=== PATIENT | male | born 1980 | race Caucasian/White ===

== ENCOUNTER 2017-05-25 21:41 | Inpatient (IN) | payer OTHER ==
[~2017-05-25] VITALS: Ht 182.9 cm; Wt 95.7 kg
[~2017-05-25 21:41] MED LIST: FLEXERIL10 MG PO; LOMOTIL 2.5-0.1 EACH PO; MOTRIN800 MG PO; ONDANSETRON HCL4 MG PO; PROMETHAZINE HC25 M3 PO; PROTONIX20 M1 PO; VICODIN5-300 PO; ZOFRAN ODT4 M1 PO
--- NOTE | 2017-05-26 00:37 | ED GI/GU/ABDOMINAL COMPLAINT ---
History of Present Illness General Chief Complaint: Nausea, Vomiting, Diarrhea Stated Complaint: +V,+N, ABD PAIN Source: patient, old records Exam Limitations: no limitations Vital Signs & Intake/Output Vital Signs & Intake/Output Vital Signs Date Time Temp Pulse Resp B/P B/P Pulse O2 O2 Flow FiO2 Mean Ox Delivery Rate 05/26 0336 97.3 76 20 111/59 97 Room Air 05/26 0045 Room Air 05/25 2152 98.0 74 18 125/79 96 Room Air ED Intake and Output 05/26 0000 05/25 1200 Intake Total Output Total Balance Patient 185 lb Weight Allergies Coded Allergies: aspirin (ANAPHYLAXIS 10/17/16) tramadol (HIVES 10/17/16) Reconcile Medications No Known Home Medications Triage Note: PT TO TRIAGE C/O N/V SINCE 6AM WELL 12/07 MID ABD PAIN. PT REPORTS TOOK OTD ZOFRAN WITH MINIMAL EFFECT AND THEN VOMITING BEGINS AGAIN. POOR PO INTAKE. REPORTS POSSIBLY COULD BE FROM THE HOT DOGS HE ATE LAST NIGHT. Triage Nurses Notes Reviewed? yes Onset: Evening Duration: hour(s):, continues in ED Timing: recent history Quality/Severity: aching, cramping, moderate, vomiting Location: epigastric Radiation: no radiation Activities at Onset: eating Prior Abdominal Problems: similar symptoms Past Sexual History: Unobtainable at this time Modifying Factors: Worsens With: eating. Associated Symptoms: abdominal pain, diaphoresis, loss of appetite, nausea/ vomiting HPI: Several hours after eating hotdogs with mac & cheese he developed sharp severe epigastric pain constant nonradiating associated with nausea vomiting. Denies fever chills chest pain cough shortness of breath headache dysuria rash bleeding. Past History Travel History Traveled to [place] past 21 day No Medical History Any Pertinent Medical History? 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 No Review of Systems Review of Systems Constitutional: Reports: no symptoms. EENTM: Reports: no symptoms. Respiratory: Reports: no symptoms. Cardiovascular: Reports: no symptoms. GI: Reports: see HPI, abdominal pain, nausea, vomiting. Genitourinary: Reports: no symptoms. Musculoskeletal: Reports: no symptoms. Skin: Reports: no symptoms. Neurological/Psychological: Reports: no symptoms. Hematologic/Endocrine: Reports: no symptoms. Immunologic/Allergic: Reports: no symptoms. All Other Systems: Reviewed and Negative Physical Exam Physical Exam General Appearance: well developed/nourished, alert, awake, anxious, moderate distress Head: atraumatic, normal appearance Eyes: Bilateral: normal appearance, PERRL, EOMI, normal inspection. Ears, Nose, Throat, Mouth: hearing grossly normal, moist mucous membrane Neck: normal inspection, supple, full range of motion, normal alignment Respiratory: normal breath sounds, chest non-tender, no respiratory distress, quiet respiration, lungs clear Cardiovascular: regular rate/rhythm, normal peripheral pulses, norml femoral pulses equa Peripheral Pulses: 4+ carotid (R), 4+ carotid (L) Gastrointestinal: soft, abnormal bowel sounds, tenderness Male Genitals: normal genitalia Back: normal inspection, normal range of motion, no vertebral tenderness Extremities: normal range of motion, no ligament instability Neurologic/Psych: no motor/sensory deficits, awake, alert, oriented x 3, normal gait, normal mood/affect, wing coverer II-XII nml as tested Skin: intact, normal color, warm/dry Core Measures ACS in differential dx? No Sepsis Present: No Sepsis Focused Exam Completed? No Progress Differential Diagnosis: biliary colic, cholecystitis, gastritis, pancreatitis Plan of Care: Orders Procedure Date/time Status Nothing by Mouth 05/26 B Active Pathway - chart 05/26 0340 Active Patient Data 05/26 0340 Active OXYGEN SETUP (GEN) 05/26 0311 Active Saline Lock 05/26 0311 Active Admit to inpatient 05/26 0311 Active Vital Signs 05/26 0311 Active Activity/Ambulation 05/26 0311 Active Code Status 05/26 0311 Active Add-on Test (ER Only) 05/26 0200 Active Intake & Output 05/26 0025 Active LDH (LACT ACID DEHYDROGENASE) 05/26 0015 Complete ETHANOL 05/26 0015 Complete House Staff 05/26 UNK Active VTE Mechanical Prophylaxis 05/26 UNK Active Vital Signs 05/26 UNK Active URINALYSIS 05/25 2341 Complete LIPASE 05/25 2341 Complete COMPREHENSIVE METABOLIC PANEL 05/25 2341 Complete CBC WITHOUT DIFFERENTIAL 05/25 2340 Complete Laboratory Tests 05/26/17 0055: Urinalysis LIGHT H, Urine Color YEL, Urine Clarity CLEAR, Urine pH 7.0, Ur Specific [place] 1.020, Urine Protein 30 H, Urine Ketones 15 H, Urine Nitrite NEG, Urine Bilirubin NEG@ICTO, Urine Urobilinogen 1.0, Ur Leukocyte Esterase NEG , Ur Microscopic SEDIMENT EXAMINED, Urine RBC 5-10 H, Urine WBC 1-3 H, Ur Epithelial Cells FEW, Hyaline Casts FEW H, Urine Mucus PACKD H, Urine Hemoglobin TRACE-INTACT H, Urine Glucose NEG 05/26/17 0015: Anion Gap 17 H, Estimated GFR > 60, BUN/Creatinine Ratio 14.0, Glucose 116 H, Calcium 11.0 H, Total Bilirubin 0.8, AST 18, ALT 34, Alkaline Phosphatase 81, Lactate Dehydrogenase 449, Total Protein 8.5 H, Albumin 5.0, Globulin 3.5, Albumin/Globulin Ratio 1.4, Lipase 2253 H, CBC w Diff NO MAN DIFF REQ, RBC 5.56 , MCV 87.4, MCH 29.7, MCHC 33.9, RDW 14.1, MPV 8.3, Gran % 80.5 H, Lymphocytes % 13.5 L, Monocytes % 5.6, Eosinophils % 0.1, Basophils % 0.3, Absolute Granulocytes 12.2 H, Absolute Lymphocytes 2.0, Absolute Monocytes 0.8 H, Absolute Eosinophils 0, Absolute Basophils 0, Serum Alcohol < 10.0 Diagnostic Imaging: Viewed by Me: CT Scan. Discussed w/RAD: CT Scan. Radiology Impression: Wall thickening to the antrum the stomach is identified. Though the stomach is underdistended, the degree of wall thickening does stand out. There is no adjacent mesenteric fat stranding. The appearance could be secondary to collapse of the stomach or represents inflammatory or infectious process. No abnormalities are identified about the pancreas. There is no abdominal or pelvic free fluid. A normal appendix is identified. Initial ED EKG: none Departure Departure Time of Disposition: 301 Disposition: STILL A PATIENT Condition: Stable Clinical Impression Primary Impression: Pancreatitis, acute Referrals: Susi MANCIA,Yazan Peters (PCP/Family) Departure Forms: Customer Survey General Discharge Information Prescriptions: Current Visit Scripts No Known Home Medications Admission Note Spoke With: Juan Antonio Hess MD Documentation of Exam: Documentation of any treatments & extenuating circumstances including Concerns Regarding Discharge (functional status, medication knowledge or non-compliance, living conditions, etc.) that warrant an admission rather than observation: Nothing by mouth IV fluids IV analgesia IV antiemetics serial lab exam GI evaluation medication adjustment continuing care discharge planning ED Attending Observation Initial Observation Note: I have seen and personally examined LEONA VILLA on 05/26/17 at 0302. I agree with the current emergency department documentation. The disposition (admission or discharge) is uncertain at this time, he needs a period of observation for the following reason(s): The ED Nurse caring for this patient has been personally informed as to what the patient is being observed for.
[2017-05-26 01:05] LABS: ABSOLUTE BASOPHIL COUNT 0 /CUMM (0.0-0.2); ABSOLUTE EOSINOPHIL COUNT 0 /CUMM (0.0-0.7); ABSOLUTE GRANULOCYTE CT 12.2 /CUMM (1.4-6.5); ABSOLUTE MONOCYTE COUNT 0.8 /CUMM (0.10-0.60); BASOPHIL % 0.3 % (0.0-2.0); EOSINOPHIL % 0.1 % (0-5); GRANULOCYTE % 80.5 % (42.2-75.2); HEMATOCRIT 48.6 % (42-52); MEAN CORPUSCULAR HGB 29.7 PG (27.0-31.0); MEAN CORPUSCULAR HGB CONC 33.9 G/DL (33.0-37.0); MEAN CORPUSCULAR VOLUME 87.4 FL (80.0-94.0); MEAN PLATELET VOLUME 8.3 FL (7.4-10.4); PLATELET COUNT 391 /CUMM (130-400); RBC DISTRIBUTION WIDTH 14.1 % (11.5-14.5); RED BLOOD CELL CT 5.56 /CUMM (4.70-6.10); WHITE BLOOD CELL COUNT 15.1 /CUMM (4.8-10.8)
--- NOTE | 2017-05-26 02:55 | CT SCAN REPORT ---
EXAMINATION: CT ABDOMEN AND PELVIS WITH CONTRAST CLINICAL INFORMATION: Epigastric pain. Elevated lipase. COMPARISON: June 2015. TECHNIQUE: Contiguous axial thin section helical images of the abdomen and pelvis were performed following the administration of 95 mL of intravenous Optiray 320. The data set was reformatted in the coronal and sagittal planes and reviewed on an independent workstation. DLP: 353 mGy-cm. FINDINGS: There is mild dependent bibasilar atelectasis. The visualized lung bases are otherwise clear. The visualized portions of the heart are unremarkable. Though underdistended, wall thickening to the antrum of the stomach is prominent. There is no adjacent fat stranding. The liver is of normal size and attenuation without focal lesions nor intrahepatic biliary ductal dilation. A normal gallbladder is identified. There is no wall thickening or discernible pericholecystic fluid. The spleen, pancreas, adrenal glands are unremarkable. Both kidneys are of normal size and attenuation without hydronephrosis or nephrolithiasis. Following the administration of IV contrast, prompt symmetric nephrograms are displayed. There is no abdominal free fluid. There is neither mesenteric nor retroperitoneal lymphadenopathy. Normal unopacified loops of small and large bowel are identified. A normal appendix is identified. There is no pelvic free fluid. The urinary bladder is unremarkable. There is neither pelvic nor inguinal lymphadenopathy. Bone windows: Neither sclerotic nor lytic bone lesions are identified. IMPRESSION: Wall thickening to the antrum the stomach is identified. Though the stomach is underdistended, the degree of wall thickening does stand out. There is no adjacent mesenteric fat stranding. The appearance could be secondary to collapse of the stomach or represents inflammatory or infectious process. No abnormalities are identified about the pancreas. There is no abdominal or pelvic free fluid. A normal appendix is identified.
--- NOTE | 2017-05-26 03:24 | History & Physical ---
Darryl Horowitz MD 05/26/17 0323: General Information and HPI MD Statement: I have seen and personally examined LEONA VILLA and documented this H&P. The patient is a 37 year old M who presented with a patient stated chief complaint of [pancreatitis]. Source of Information: patient Exam Limitations: no limitations History of Present Illness: Patient is a 37-year-old male with significant past medical history of present complaining of intractable nausea, vomiting, abdominal pain. Pain began the morning of presentation, waking him from sleep. It was associated with nausea and frequent vomiting, approximately one time per hour. The initial set of emesis contained his meal from last night which was a hotdog and mac & cheese, he proceeded to vomit the water that he was drinking throughout the day. He had 1-2 episodes of bilious vomiting later that day. He took Zofran which would relieve the nausea for only a short period of time. His pain is rated 10/10 sharp pain in the epigastric area was improved with leaning forward. Worse with lying down and made significantly worse with episodes of emesis. He reports episodes of diaphoresis during emesis. His whom he lives with was diagnosed with the flu 2 weeks ago. He has no other sick contacts and nobody he has had episodes of emesis. He denies any diarrhea, urinary symptoms, chills. 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 Home Who Do You Live With? child Services at Home: None Primary Language: Latvian Smoking Status: Never Smoked ETOH Use: occasional use Illicit Drug Use: marijuana Functional Ability ADLs Independent: dressing, eating, toileting, bathing. Ambulation: independent Review of Systems Review of Systems Constitutional: Reports: fever, malaise. Denies: chills. EENTM: Reports: no symptoms. Cardiovascular: Reports: no symptoms. Respiratory: Reports: no symptoms. GI: Reports: abdominal pain, bloating, nausea, vomiting. Denies: diarrhea, melena. Genitourinary: Reports: no symptoms. Musculoskeletal: Reports: back pain (chronic). Skin: Denies: rash. Exam & Diagnostic Data Last 24 Hrs of Vital Signs/I&O Vital Signs Date Time Temp Pulse Resp B/P B/P Pulse O2 O2 Flow FiO2 Mean Ox Delivery Rate 05/26 0045 Room Air 05/25 2152 98.0 74 18 125/79 96 Room Air Intake & Output 05/26 0800 05/26 0000 05/25 1600 Intake Total 0 Output Total Balance 0 Intake, Oral 0 Patient 185 lb Weight Physical Exam General Appearance Alert, Oriented X3, Cooperative Skin Temp/Moisture Exam: Warm/Dry Sepsis Skin Exam (color): Normal for Ethnicity Cardiovascular Regular Rate, Normal S1, Normal S2 Lungs Clear to Auscultation, Normal Air Movement Abdomen Normal Bowel Sounds Neurological Normal Speech, Normal Tone, Sensation Intact Last 24 Hrs of Labs/John: Laboratory Tests 05/26/17 0055: Urinalysis LIGHT H, Urine Color YEL, Urine Clarity CLEAR, Urine pH 7.0, Ur Specific [place] 1.020, Urine Protein 30 H, Urine Ketones 15 H, Urine Nitrite NEG, Urine Bilirubin NEG@ICTO, Urine Urobilinogen 1.0, Ur Leukocyte Esterase NEG , Ur Microscopic SEDIMENT EXAMINED, Urine RBC 5-10 H, Urine WBC 1-3 H, Ur Epithelial Cells FEW, Hyaline Casts FEW H, Urine Mucus PACKD H, Urine Hemoglobin TRACE-INTACT H, Urine Glucose NEG 05/26/17 0015: Anion Gap 17 H, Estimated GFR > 60, BUN/Creatinine Ratio 14.0, Glucose 116 H, Calcium 11.0 H, Total Bilirubin 0.8, AST 18, ALT 34, Alkaline Phosphatase 81, Lactate Dehydrogenase 449, Total Protein 8.5 H, Albumin 5.0, Globulin 3.5, Albumin/Globulin Ratio 1.4, Lipase 2253 H, CBC w Diff NO MAN DIFF REQ, RBC 5.56 , MCV 87.4, MCH 29.7, MCHC 33.9, RDW 14.1, MPV 8.3, Gran % 80.5 H, Lymphocytes % 13.5 L, Monocytes % 5.6, Eosinophils % 0.1, Basophils % 0.3, Absolute Granulocytes 12.2 H, Absolute Lymphocytes 2.0, Absolute Monocytes 0.8 H, Absolute Eosinophils 0, Absolute Basophils 0, Serum Alcohol < 10.0 Diagnostic Data Other Results CT abd/pelvis w/ IV contrast FINDINGS: There is mild dependent bibasilar atelectasis. The visualized lung bases are otherwise clear. The visualized portions of the heart are unremarkable. Though underdistended, wall thickening to the antrum of the stomach is prominent. There is no adjacent fat stranding. The liver is of normal size and attenuation without focal lesions nor intrahepatic biliary ductal dilation. A normal gallbladder is identified. There is no wall thickening or discernible pericholecystic fluid. The spleen, pancreas, adrenal glands are unremarkable. Both kidneys are of normal size and attenuation without hydronephrosis or nephrolithiasis. Following the administration of IV contrast, prompt symmetric nephrograms are displayed. There is no abdominal free fluid. There is neither mesenteric nor retroperitoneal lymphadenopathy. Normal unopacified loops of small and large bowel are identified. A normal appendix is identified. There is no pelvic free fluid. The urinary bladder is unremarkable. There is neither pelvic nor inguinal lymphadenopathy. Bone windows: Neither sclerotic nor lytic bone lesions are identified. IMPRESSION: Wall thickening to the antrum the stomach is identified. Though the stomach is underdistended, the degree of wall thickening does stand out. There is no adjacent mesenteric fat stranding. The appearance could be secondary to collapse of the stomach or represents inflammatory or infectious process. No abnormalities are identified about the pancreas. There is no abdominal or pelvic free fluid. A normal appendix is identified. Assessment/Plan Assessment: Patient is a 37-year-old male with significant past medical history of present complaining of intractable nausea, vomiting, abdominal pain. VS on admission: T 98, P 74, RR 18, BP 125/79, pulse ox 96% on room air Significant labs on presentation: Leukocytosis, elevated lipase Problem list #Acute pancreatitis Plan -Admit to general medicine floor -Right upper quadrant ultrasound to assess for gallstones -Nothing by mouth pending pending right upper quadrant ultrasound, advance diet as tolerated afterwards -Aggressive IV fluid hydration with lactated Ringer's - CRP, trend to follow severity of inflammation -lipid panel -Adequate pain control Diet: Nothing by mouth DVT prophylaxis: Lovenox, ALPS Code status: Full code As Ranked By This Provider Problem List: 1. Pancreatitis, acute Core Measures/Misc (11/14) Acute Coronary Syndrome ACS Diagnosis: No Congestive Heart Failure Congestive Heart Failure Diagnosis No Cerebrovascular Accident CVA/TIA Diagnosis: No VTE (View Protocol) VTE Risk Factors Smoker No Mechanical VTE Prophylaxis d/t N/A MechProphylax Ordered No VTE Pharm Prophylaxis d/t NA PharmProphylax ordered Sepsis (View protocol) Sepsis Present: No Marilou Cardoza 05/26/17 0427: Resident Review Statement Resident Statement: examined this patient, discussed with sports intern, agreed with sports intern, reviewed images Other Findings: 37 year old gentleman, current smoker and marijuana user, no significant pmh and not on regular meds, family h/o significant for WPW in mother, presented to ED for evaluation of multiple episodes of vomitting. He was at his usual state of health prior to 6:30 am yesterday when he was woken up with mid epigastric pain, 10/10 at its worst with some radation to his back. Associated with multiple episodes of non bloody vomiting, feeling feverish and chills. The night before he had macaroni and cheese with hot dogs for dinner. His son was diagnosed and treated for the flu two weeks ago. Denies simillar episodes in the past, h/o gall stones, alcohol dependence, bowel or bladder symptoms. vitals: Tmax 0, heart rate 76, respiratory rate 18, blood pressure 125/79, 96 on room air Labs significant for WBC 15.1 with left shift, hemoglobin 16.5 hematocrit 40 T8.6, platelet 391, sodium 145, potassium 3.9, chloride 98, bicarbonate 29, B1 14, creatinine 1.0, glucose 116 normal LFTs, corrected calcium 10.2 UA significant for ketones, WBC, RBC, hyalin casts and hemoglobinuria EKG: NSR, no delta waves noted. Assessment: acute pancreatitis (meets 2/3 criteria= elevated lipase and abdominal pain/vomiting) unclear etiology at this time. Problem list: Acute pancreatitis Family history of WPW plan: -admit to general medicine floor, vitals per protocol -Keep nothing by mouth, ultrasound of abdomen in a.m. to evaluate for gallstones , can advance -diet once ultrasound is done if patient tolerates -Ringer lactate at 250 mL for 24 hours and reassess -Follow-up lipid panel, CRP, LFT, CBC and electrolytes in a.m. -prn Zofran for n/v -pain control with IV tylenol ATC , pt allergic (hives) to tramadol -f/up trop and utox DVT prophylaxis with subcutaneous Lovenox Keep nothing by mouth for now Full code Juan Antonio Hess 05/26/17 0447: Attending MD Review Statement Attending Statement Attending MD Statement: examined this patient, discuss w/resident/PA/HEEL SEATER, agreed w/resident/PA/HEEL SEATER, reviewed EMR data (avail), reviewed images, amended to note Attending Assessment/Plan: CC: Nausea vomiting abdominal pain PMH: none Patient came to ER for severe nausea, vomiting and abdominal pain. He woke up this morning with abdominal pain, at 6 AM, pain 10 /10, "stonelike" hard feeling in the stomach starting from umbilicus radiating upwards, pain does not radiate to back but he has associated back pain. Abdominal pain is relieved a little while leaning forwards, no other relieving or aggravating factors. At the same time he also noticed severe nausea and vomiting, he was throwing up every hour, bilious, nonbloody, with mild relief with sublingual Zofran but then recurred again. No diarrhea, no flulike symptoms, no urinary burning or frequency. Patient never had similar symptoms in the past. He ate hotdog and mac & cheese a day before. Very rarely drinks alcohol, last drink was 2 days back, half a bottle of beer. Endorses marijuana use. son was sick and was diagnosed to have flu 2 weeks back. Denies any fever or chills, chest pain, chest tightness, shortness of breath, palpitations. Never diagnosed to have high cholesterol, gallstones. Patient's mother has WPW syndrome, patient was never investigated for the same, he gets occasional palpitations. Vitals: Afebrile, pulse 70s, RR 18, blood pressure 125/79, saturating well on room air. On exam: A O 3, cooperative, no acute distress, neck supple, JVD normal, no lymphadenopathy, mucosa dry, no focal neurological deficit, no dependent edema, no obvious skin rashes or inflammation CVS: S1-S2, RRR. RS: Clear to auscultate bilaterally. Abdomen: Soft, tender in epigastric area, Cisneros's sign negative, no CVA tenderness , ND, bowel sounds present. Peripheral pulses perfusion normal CT abdomen and pelvis with IV contrast Wall thickening to the antrum the stomach is identified. Though the stomach is underdistended, the degree of wall thickening does stand out. There is no adjacent mesenteric fat stranding. The appearance could be secondary to collapse of the stomach or represents inflammatory or infectious process. No abnormalities are identified about the pancreas. There is no abdominal or pelvic free fluid. A normal appendix is identified. Assessment and plan 37-year-old male with no significant past medical history presented in ER for nausea, vomiting, severe abdominal pain which woke him up at 6 AM, persistently worsening thereafter, at 10/10, radiating upwards towards epigastrium, associated with back pain, vomiting bilious, nonbloody, no fever, no chills, no chest pain shortness of breath. Patient has tenderness on palpation on epigastric area. His lipase elevated to 2253. He has mild leukocytosis with left shift, hematocrit is 48.6 and calcium is 11.0 with albumin 5.0 and protein 8.5. Patient appears hemoconcentrated secondary to nausea vomiting and pancreatitis. CT scan does not show any significant pancreatic inflammation, shows thickening of stomach antrum. This could be secondary to vomiting, gastritis or inflammation but patient appears to have pancreatitis. No obvious cause of pancreatitis identified. He does not drink significant alcohol, does not have a gallbladder stone on CT scan. Patient has hypercalcemia which may cause pancreatitis but his albumin is elevated and he appears hemoconcentrated, it should be repeated again. + Pancreatitis + Dehydration - Admit to general medicine - Continue aggressive hydration with Ringer's lactate at 200 mL per hour - Check right upper quadrant ultrasound, lipid profile, U tox to the sample in lab - add one set of troponin to the sample in lab and obtain ECG - check CRP for 3 days as prognostic indicator - Check magnesium and phosphorus, replace if low - Adequate pain control - Check LFT in a.m. - Advance clears as tolerated - When necessary Zofran for nausea vomiting
--- NOTE | 2017-05-26 04:49 | Admission Certification ---
Admission Certification Certification Statement - As attending physician, I certify that at the time of - admission, based on clinical presentation, severity of - symptoms, need for further diagnostic testing and - therapeutic interventions, and risk of adverse outcomes - without in-hospital treatment, in my clinical assessment, - this patient requires an acute hospital stay for a minimum - of two nights or longer. I have also considered psychsocial - factors such as support system, advanced age, financial - issues, cognitive issues, and failed out-patient treatments, - past re-admission history, safety of patient, and lack of - compliance as applicable. Specific rationale supporting this admission is: Acute pancreatitis
[2017-05-26 06:57] VITALS: BP 144/68
[2017-05-26 08:56] LABS: ABSOLUTE BASOPHIL COUNT 0 /CUMM (0.0-0.2); ABSOLUTE EOSINOPHIL COUNT 0.1 /CUMM (0.0-0.7); ABSOLUTE GRANULOCYTE CT 9.2 /CUMM (1.4-6.5); ABSOLUTE LYMPH COUNT 2.5 /CUMM (1.2-3.4); BASOPHIL % 0.3 % (0.0-2.0); EOSINOPHIL % 0.5 % (0-5); GRANULOCYTE % 71.5 % (42.2-75.2); MEAN CORPUSCULAR HGB 29.8 PG (27.0-31.0); MEAN CORPUSCULAR HGB CONC 33.7 G/DL (33.0-37.0); MEAN CORPUSCULAR VOLUME 88.2 FL (80.0-94.0); MEAN PLATELET VOLUME 8.4 FL (7.4-10.4); PLATELET COUNT 319 /CUMM (130-400); RBC DISTRIBUTION WIDTH 13.9 % (11.5-14.5); RED BLOOD CELL CT 4.73 /CUMM (4.70-6.10); WHITE BLOOD CELL COUNT 12.9 /CUMM (4.8-10.8)
[2017-05-26 08:58] LABS: HEMATOCRIT 41.7 % (42-52)
--- NOTE | 2017-05-26 10:24 | ULTRASOUND REPORT ---
EXAMINATION: US ABDOMEN COMPLETE CLINICAL INFORMATION: 37-year-old male with abdominal pain, elevated lipase and nausea and vomiting. Evaluate for cholelithiasis.. COMPARISON: CT abdomen and pelvis 05/26/2017 TECHNIQUE: Real-time imaging of the abdominal viscera. FINDINGS: PANCREAS: Pancreatic tail is obscured by overlying bowel gas. The visualized pancreas appears unremarkable. ABDOMINAL AORTA: The proximal segment is normal in caliber. INFERIOR VENA CAVA: Visualized portions are normal. LIVER: Unremarkable. The liver demonstrates normal size, contour and echogenicity. No focal lesion or intrahepatic biliary duct dilatation. GALLBLADDER: Unremarkable. The gallbladder is physiologically distended without evidence of stones, sludge, polyps, wall thickening or pericholecystic fluid. COMMON BILE DUCT: Normal in caliber measuring 0.3 cm in diameter. RIGHT KIDNEY: Unremarkable. No hydronephrosis. No renal calculi or focal parenchymal lesions. The kidney measures 10.6 cm in maximum dimension. LEFT KIDNEY: Unremarkable. No hydronephrosis. No renal calculi or focal parenchymal lesions. The kidney measures 10.6 cm in maximum dimension. SPLEEN: Unremarkable. The spleen measures 11.5 cm in maximum dimension. FREE FLUID: None. IMPRESSION: No acute sonographic abnormality. No evidence of cholelithiasis.
[2017-05-26 13:50] VITALS: BP 140/74
--- NOTE | 2017-05-26 16:18 | PN- Att Addend ---
Attending Addendum Attending Brief Note 37M no PMH presenting with intractable epigastric pain, nausea, and vomiting in the setting of idiopathic acute pancreatitis. Concern for cyclic vomiting syndrome given positive urine toxicology, however patient reports that he does not use very regularly. No alcohol intake or new medicatations or supplements. Pain improved with Morphine, however it made him nauseous. 1. Acute idiopathic pancreatitis Plan - Continue on general medicine - Dilaudid PRN pain - IV hydration - Advance diet as tolerated - DVT PPx
[2017-05-26 21:59] VITALS: BP 148/90
[2017-05-27 06:00] VITALS: BP 142/88
--- NOTE | 2017-05-27 07:08 | PN- Housestaff ---
Jayjay Wagner 05/27/17 0707: Subjective Follow-up For: Acute pancreatitis Subjective: Patient reports nausea that causes an accumulation of saliva. He also reports back pain which he reports he has had a chronic issue. Review of Systems Constitutional: Reports: see HPI. Objective Last 24 Hrs of Vital Signs/I&O Vital Signs Date Time Temp Pulse Resp B/P B/P Pulse O2 O2 Flow FiO2 Mean Ox Delivery Rate 05/27 06 98.0 50 16 142/88 96 Room Air 05/26 2159 98.7 80 18 148/90 97 Room Air 05/26 1350 98.4 54 18 140/74 97 Room Air Intake & Output 05/27 0800 05/27 0000 05/26 1600 Intake Total 1999 1999 Output Total Balance 1999 1999 Intake, IV 1999 1999 Patient 205 lb Weight Weight Bed scale Measurement Method Physical Exam General Appearance: Alert, Oriented X3, Cooperative, No Acute Distress Cardiovascular: Regular Rate, Normal S1, Normal S2, No Murmurs Lungs: Clear to Auscultation, Normal Air Movement Abdomen: Epigastric tenderness Extremities: No Edema Current Medications: Current Medications Sig/Eduardo Start time Last Medication Dose Route Stop Time Status Admin Acetaminophen 1,000 MG Q6H 05/26 0500 DC 05/26 N/A 1 UNIT IV 05/26 2314 2346 Enoxaparin Sodium 40 MG DAILY 05/26 1000 AC SC Hydromorphone HCl 2 MG Q4P PRN 05/26 1130 AC 05/27 PO 0518 Lactated Ringer's 1,000 ML .Q4H 05/26 0430 AC 05/27 IV 0518 Metoclopramide HCl 5 MG ONCE ONE 05/26 1315 DC 05/26 IV 05/26 1316 1315 Morphine Sulfate 4 MG .STK-MED ONE 05/26 1028 DC IM 05/26 1029 Morphine Sulfate 2 MG Q4P PRN 05/26 0945 DC 05/26 IV 1031 Ondansetron HCl 4 MG Q6-PRN PRN 05/26 0945 AC 05/27 PO 0521 Last 24 Hrs of Lab/John Results Last 24 Hrs of Labs/Mics: Laboratory Tests 05/26/17 0807: Anion Gap 9, Estimated GFR > 60, BUN/Creatinine Ratio 14.4, Calcium 9.8, Total Bilirubin 0.8, Direct Bilirubin 0.4, AST 14 L, ALT 35, Alkaline Phosphatase 64, Troponin I < 0.01, C-React Prot High Sens 2.9, Total Protein 6.7, Albumin 3.9, Triglycerides 108, Cholesterol 164, LDL Cholesterol, Calc 103, HDL Cholesterol 40, Cholesterol/HDL Ratio 4, CBC w Diff NO MAN DIFF REQ, RBC 4.73, MCV 88.2, MCH 29.8, MCHC 33.7, RDW 13.9, MPV 8.4, Gran % 71.5, Lymphocytes % 19.6 L, Monocytes % 8.1, Eosinophils % 0.5, Basophils % 0.3, Absolute Granulocytes 9.2 H, Absolute Lymphocytes 2.5, Absolute Monocytes 1.0 H, Absolute Eosinophils 0.1 , Absolute Basophils 0 Assessment/Plan Assessment: Mr. Khalil is a 37-year-old male with significant past medical history of present complaining of intractable nausea, vomiting, abdominal pain. Problem list: Acute pancreatitis Intractable NV may be 2/2 cannabis use Chronic back pain Plan: IV Morphine Discontinue Dilaudid Start IV Protonix Start Flexeril for abdominal and back spasms RUQ US showed no evidence of cholelithiasis. CT ABD/Pel showed wall thickening to the antrum the stomach Utox positive for cannabis Lipase elevated 2235 Advance diet as tolerated Diet: Clear liquid DVT prophylaxis: Lovenox, ALPS Code status: Full code Problem List: 1. Pancreatitis, acute Pain Ratin Pain Location: Epigastric Pain Goal: Pain 7 or less Pain Plan: Morphine Tomorrow's Labs & Rationales: none Louis Vera MD 05/27/17 1034: Attending MD Review Statement Attending Statement Attending MD Statement: examined this patient, discuss w/resident/PA/CATERING ASSISTANT, agreed w/resident/PA/CATERING ASSISTANT, reviewed EMR data (avail) Attending Assessment/Plan: 37M no PMH presenting with intractable epigastric pain, nausea, and vomiting in the setting of idiopathic acute pancreatitis. Concern for cyclic vomiting syndrome given positive urine toxicology, however patient reports that he does not use very regularly. No alcohol intake or new medicatations or supplements. Had gassy epigastric pain this morning and then vomited. 1. Acute idiopathic pancreatitis Plan - Continue on general medicine - Discontinue Dilaudid, start Morphine 4mg IV q4h PRN - Start Protonix 40mg IV daily - Start Flexeril for back pain, monitor for sedation - IV hydration - Clear liquid diet - DVT PPx
--- NOTE | 2017-05-27 13:48 | Discharge Summary ---
Hospital Course Allergies: Coded Allergies: aspirin (ANAPHYLAXIS 10/17/16) tramadol (HIVES 10/17/16)
[2017-05-27 14:46] VITALS: BP 142/80
--- NOTE | 2017-05-27 16:23 | Patient Discharge Instructions ---
Discharge Instructions General Discharge Information You were seen/treated for: Acute pancreatitis You had these procedures: none Special Instructions: Follow up with PCP and GI within 1 week of discharge Diet Recommended Diet: Low Fat Activity Other activity limits: As tolerated Acute Coronary Syndrome Inclusion Criteria At DC or during hospital stay patient has or had the following: ACS DIAGNOSIS No Discharge Core Measures Meds if any: Prescribed or Continued at Discharge Meds if any: NOT Prescribed or Continued at Discharge Congestive Heart Failure Inclusion Criteria At DC or during hospital stay patient has or had the following: CHF DIAGNOSIS No Discharge Core Measures Meds if any: Prescribed or Continued at Discharge Meds if any: NOT Prescribed or Continued at Discharge Cerebrovascular accident Inclusion Criteria At DC or during hospital stay patient has or had the following: CVA/TIA Diagnosis No Discharge Core Measures Meds if any: Prescribed or Continued at Discharge Meds if any: NOT Prescribed or Continued at Discharge Venous thromboembolism Inclusion Criteria VTE Diagnosis No VTE Type NONE VTE Confirmed by (Test) NONE Discharge Core Measures - Per Current guidelines, there needs to be overlap - treatment for the first 5 days of Warfarin therapy. - If discharged on Warfarin prior to 5 days of - overlap therapy, the patient will need to be - assessed for post discharge needs including - *Post discharge parental anticoagulation - *Warfarin and/or parental anticoagulation education - *Follow up date to check INR post discharge At least 5 days overlap therapy as Inpatient No Meds if any: Prescribed or Continued at Discharge Note: Overlap Therapy is Warfarin and Anticoagulant Meds if any: NOT Prescribed or Continued at Discharge
[2017-05-27 22:31] VITALS: BP 130/72
[2017-05-28 06:59] VITALS: BP 130/74
--- NOTE | 2017-05-28 10:37 | PN- Housestaff ---
See Addendum Subjective Follow-up For: Panreatitis Subjective: No overnight events. He did not tolerate breakfast well, says the toast was too much. Having some diarrhea. Pain is well controlled. Review of Systems Constitutional: Reports: no symptoms. EENTM: Reports: no symptoms. Cardiovascular: Reports: no symptoms. Respiratory: Reports: no symptoms. Gastrointestinal: Reports: see HPI. Genitourinary: Reports: no symptoms. Musculoskeletal: Reports: no symptoms. Skin: Reports: no symptoms. Neurological/Psychological: Reports: no symptoms. Hematologic/Endocrine: Reports: no symptoms. Immunologic/Allergic: Reports: no symptoms. Objective Last 24 Hrs of Vital Signs/I&O Vital Signs Date Time Temp Pulse Resp B/P B/P Pulse O2 O2 Flow FiO2 Mean Ox Delivery Rate 05/28 0659 98.4 66 18 130/74 94 Room Air 05/27 2231 98.3 68 19 130/72 96 Room Air 05/27 1446 98.2 55 18 142/80 97 Intake & Output 05/28 1600 05/28 0800 05/28 0000 Intake Total 2360 1300 Output Total Balance 2360 1300 Intake, IV 2000 1000 Intake, Oral 360 300 Patient 89.981 kg Weight Physical Exam General Appearance: Alert, Oriented X3, Cooperative, No Acute Distress Cardiovascular: Regular Rate, Normal S1, Normal S2 Lungs: Clear to Auscultation Abdomen: tenderness epigastrium Extremities: No Edema, Normal Pulses, No Tenderness/Swelling Current Medications: Current Medications Sig/Eduardo Start time Last Medication Dose Route Stop Time Status Admin Cyclobenzaprine HCl 10 MG BID 05/27 1000 AC 05/28 PO 0819 Enoxaparin Sodium 40 MG DAILY 05/26 1000 AC 05/28 SC 0820 Lactated Ringer's 1,000 ML .Q4H 05/26 0430 AC 05/28 IV 0749 Morphine Sulfate 4 MG Q4P PRN 05/27 0945 AC 05/28 IV 0641 Ondansetron HCl 4 MG Q6-PRN PRN 05/26 0945 AC 05/27 PO 2144 Pantoprazole Sodium 40 MG DAILY 05/27 1000 AC 05/28 IV 0819 Patient Medication 1 ED ONE ONE 05/27 1315 DC 05/27 Teaching ED 05/27 1316 1330 Assessment/Plan Assessment: Mr. Khalil is a 37-year-old male with significant past medical history of present complaining of intractable nausea, vomiting, abdominal pain. Problem list: Acute pancreatitis Intractable NV may be 2/2 cannabis use Chronic back pain Plan: IV Morphine IV Protonix Flexeril for abdominal and back spasms RUQ US showed no evidence of cholelithiasis. CT ABD/Pel showed wall thickening to the antrum the stomach Utox positive for cannabis Lipase elevated 2235 Advance diet as tolerated. We will go back to clear liquids today. Diet: Clear liquid DVT prophylaxis: Lovenox, ALPS Code status: Full code Problem List: 1. Pancreatitis, acute Pain Ratin Pain Location: abd Pain Goal: Remain pain free Pain Plan: see a/p Tomorrow's Labs & Rationales: no
[2017-05-28 14:46] VITALS: BP 110/73
[2017-05-28 22:22] VITALS: BP 126/80
[2017-05-29 06:32] VITALS: BP 122/84
--- NOTE | 2017-05-29 08:23 | PN- Housestaff ---
See Addendum Subjective Follow-up For: Acute pancreatitis Subjective: Reports abdominal discomfort and acid reflux. Review of Systems Constitutional: Reports: see HPI. Objective Last 24 Hrs of Vital Signs/I&O Vital Signs Date Time Temp Pulse Resp B/P B/P Pulse O2 O2 Flow FiO2 Mean Ox Delivery Rate 05/29 0632 98.1 56 16 122/84 92 Room Air 05/28 2222 98.8 58 18 126/80 96 Room Air 05/28 1446 98.2 60 18 110/73 98 Intake & Output 05/29 1600 05/29 0800 05/29 0000 Intake Total 2100 2350 Output Total Balance 2100 2350 Intake, IV 1999 2000 Intake, Oral 100 350 Patient 211 lb Weight Weight Bed scale Measurement Method Physical Exam General Appearance: Alert, Oriented X3, Cooperative, No Acute Distress Cardiovascular: Regular Rate, Normal S1, Normal S2 Lungs: Clear to Auscultation, Normal Air Movement Abdomen: Epigastric tenderness Current Medications: Current Medications Sig/Eduardo Start time Last Medication Dose Route Stop Time Status Admin Cyclobenzaprine HCl 10 MG BID 05/27 1000 AC 05/28 PO 2156 Enoxaparin Sodium 40 MG DAILY 05/26 1000 AC 05/28 SC 0820 Lactated Ringer's 1,000 ML .Q4H 05/29 0045 AC 05/29 IV 0432 Lactated Ringer's 1,000 ML .Q4H 05/26 0430 DC 05/28 IV 2026 Morphine Sulfate 4 MG Q4P PRN 05/27 0945 AC 05/29 IV 0435 Ondansetron HCl 4 MG Q6-PRN PRN 05/26 0945 AC 05/28 PO 1356 Pantoprazole Sodium 40 MG DAILY 05/27 1000 AC 05/28 IV 0819 Assessment/Plan Assessment: Mr. Khalil is a 37-year-old male with significant past medical history of present complaining of intractable nausea, vomiting, abdominal pain. Problem list: Acute pancreatitis Intractable NV may be 2/2 cannabis use Chronic back pain Plan: Continue IV Morphine Continue IV Protonix Continue Flexeril for abdominal and back spasms Continue LR @ 100 RUQ US showed no evidence of cholelithiasis. CT ABD/Pel showed wall thickening to the antrum the stomach Utox positive for cannabis Lipase elevated 2235 Advance diet as tolerated Diet: Clear liquid DVT prophylaxis: Lovenox, ALPS Code status: Full code Problem List: 1. Pancreatitis, acute Pain Ratin Pain Location: Epigastric Pain Goal: Pain 4 or less Pain Plan: Morphine Tomorrow's Labs & Rationales: none
== END 2017-05-29 13:42 | DRG 282 ==
LOC: ERH 21:41 → 2NA 05-26 03:11 → ERHI 05-26 03:11 → ENRESERV 05-26 03:54 → 2NA 05-26 04:38 → ENPENDDIS 05-29 12:54 → 2NA 05-29 13:42
PROVIDERS: Internal Medicine; Physician Assistant Medical
DX: K85.00 Idiopathic acute pancreatitis without necrosis or infection (principal); F12.90 Cannabis use, unspecified, uncomplicated; E86.0 Dehydration; G89.29 Other chronic pain; M54.9 Dorsalgia, unspecified; J45.909 Unspecified asthma, uncomplicated; Z82.49 Family history of ischemic heart disease and other diseases of the circulatory system; Z88.8 Allergy status to other drugs, medicaments and biological substances; Z88.6 Allergy status to analgesic agent
CPT/HCPCS: 2NASP; 36592; 74177; 80307; 81001; 82436; 93005; 93010; 96361; 96374; 96375; G0480; J0131; J1650; J2405; J2765; J3101; J7120